=== PATIENT | female | born 1930 | race Two or more races ===

== ENCOUNTER 2019-04-04 08:40 | Emergency (ER) | payer OTHER ==
[~2019-04-04] VITALS: Ht 167.6 cm; Wt 62.1 kg
[~2019-04-04 08:40] MED LIST: CIPRO XR 5500 MG/BOT PO; PROTONIX40 MG PO; TAMS0.4C PO
[2019-04-04] MEDS ORDERED: EXELON1 EAC1 TD (08:59)
[2019-04-04] MEDS ORDERED: NAPROXEN500 MG PO (10:44)
== END 2019-04-04 12:34 | disposition home or self-care (01) ==
LOC: ER 08:40
DX: G89.11 Acute pain due to trauma (principal); M54.5 Low back pain; M54.6 Pain in thoracic spine

== ENCOUNTER 2020-12-03 16:47 | Emergency (ER) | payer OTHER ==
[~2020-12-03] VITALS: Ht 170.2 cm; Wt 62.1 kg
[~2020-12-03 16:47] MED LIST changes: +EXELON1 EAC1 TD; +NAPROXEN500 MG PO
== END 2020-12-04 09:48 | disposition home or self-care (01) ==
LOC: ER 16:47
DX: N39.0 Urinary tract infection, site not specified (principal); M54.5 Low back pain